=== PATIENT | male | born 1975 | race Two or more races ===

== ENCOUNTER → 2024-01-15 06:25 | Day surgery (SDC) | payer BC, SELFPAY | LOC: GI 06:25 | PROVIDERS: ATTENDING PHYSICIAN Internal Medicine Gastroenterology | DX: Z12.11 Encounter for screening for malignant neoplasm of colon (principal); K64.8 Other hemorrhoids | CPT/HCPCS: G0121 ==

== ENCOUNTER → 2024-08-26 14:00 | Outpatient (REF) | payer BC, SELFPAY | LOC: HWRAD 14:00 | PROVIDERS: ATTENDING PHYSICIAN Family Medicine | DX: R10.9 Unspecified abdominal pain (principal) | CPT/HCPCS: 74177; Q9967 ==

== ENCOUNTER 2024-09-07 06:44 | Outpatient (RCR) | payer BC, SELFPAY | END 2024-09-07 23:59 | disposition home or self-care (01) | LOC: RPT 06:44 | PROVIDERS: ATTENDING PHYSICIAN Family Medicine | DX: M54.50 Low back pain, unspecified (principal); Z73.6 Limitation of activities due to disability; R10.2 Pelvic and perineal pain | CPT/HCPCS: 97110; 97162 ==

== ENCOUNTER 2024-10-14 07:21 | Outpatient (RCR) | payer BC, SELFPAY | END 2024-10-14 23:59 | disposition home or self-care (01) | LOC: RPT 07:21 | PROVIDERS: ATTENDING PHYSICIAN Family Medicine | DX: M54.50 Low back pain, unspecified (principal); Z73.6 Limitation of activities due to disability; M25.551 Pain in right hip; R10.2 Pelvic and perineal pain | CPT/HCPCS: 97110 ==

== ENCOUNTER 2024-10-28 07:27 | Outpatient (RCR) | payer BC, SELFPAY | END 2024-10-28 23:59 | disposition home or self-care (01) | LOC: RPT 07:27 | PROVIDERS: ATTENDING PHYSICIAN Family Medicine | DX: M54.50 Low back pain, unspecified (principal); Z73.6 Limitation of activities due to disability; M25.551 Pain in right hip; R10.2 Pelvic and perineal pain; R29.3 Abnormal posture; M62.81 Muscle weakness (generalized) | CPT/HCPCS: 97110 ==

== ENCOUNTER 2025-01-31 08:37 | Emergency (ER) | payer BC, SELFPAY ==
[2025-01-31 08:48] VITALS: BP 136/81
--- NOTE | 2025-01-31 09:15 | ED.GENMED ---
History of Present Illness
General
Chief Complaint: Swelling
Source: patient
Time Seen by Provider: 01/31/25 08:54
History of Present Illness
History of Present Illness:
49-year-old male presents to the emergency room complaining of left lower leg pain and sensation of tightness. Patient recently traveled by car to [place] for about a 6-hour drive and then back the next day. Discomfort seemed to worsen after that
trip. No chest pain or shortness of breath. No other complaints. Patient is able to ambulate but does have some discomfort.
Phy Exam
Physical Exam
Physical Exam:
General: Awake, Alert, Oriented X3. No acute distress.
Vitals: unremarkable
Head: Atraumatic
Eyes: Pupils equal, EOMI
Throat: Airway intact, no exudates
Neck: Trachea midline
Neuro: Nonfocal
Skin: Warm, dry, no rash
Extremities: pulses equal b/l, perhaps mild swelling left lower extremity, some tenderness to palpation over the left calf.
Scores
Heart Failure Risk
Heart Failure Risk Score: Not Applicable
Course
Orders/Labs/Results
Orders:
Orders
01/31/25 09:13
US Periph Venous LOWER Ext LT Urgent
Comment:
Reason For Exam: pain, swelling, recent long drive
Vital Signs
Initial and Last Documented VS:
Initial Vital Signs
Temp Pulse Resp BP Pulse Ox
98.1 F 71 16 136/81 98
01/31/25 08:48 01/31/25 08:48 01/31/25 08:48 01/31/25 08:48 01/31/25 08:48
Last Documented Vital Signs
Temp Pulse Resp BP Pulse Ox
98.1 F 71 16 145/75 98
01/31/25 08:48 01/31/25 08:48 01/31/25 08:48 01/31/25 11:35 01/31/25 08:48
MDM/Problems Addressed
Differential Diagnosis Includes:
DVT, muscle strain, radiculopathy
MDM/Problems Addressed:
Ultrasound negative for DVT. Physical exam is reassuring. Patient has good pulses and sensation. Recommend outpatient follow-up
*Radiology
Radiology exam reviewed: radiology read reviewed
*Critical Care Note
Total Time (30-74mins, 75-104mins- exclusive of procedures): Not Applicable
ED Attending Note
-
Portions of this chart may have been created with voice recognition software.� Occasional wrong word or��sound alike� substitutions may have occurred due to the inherent limitations of voice recognition software.
Discharge Plan
Departure
Patient Disposition: Home (Routine Discharge)
Date of Disposition: 01/31/25
Time of Disposition: 11:10
Patient with high blood pressure during this ER visit?: No
Condition: Good
Discharge Problem:
Left leg pain
Referrals:
Mau Thorep, DO [Family Provider] -
Activity Restrictions/Additional Instructions:
Your ultrasound shows no evidence for a blood clot in your left leg. Suspect your pain is more muscular in nature. I think it safe for you to be discharged with no change in your medications and follow-up with Dr. Thorpe's office.
Interventions
Interventions:
*Risk Screen - Suicide Last Done: 01/31/25 08:53
*General Assessment Last Done: 01/31/25 08:53
*Neglect/Abuse Screening Last Done: 01/31/25 08:53
*Nursing Disposition Last Done: 01/31/25 11:58
ED-Skin Assessment Last Done: 01/31/25 09:29
Discharge Date and Time
Discharge Date/Time: 01/31/25 11:58
Print Language: MICRONESIAN
[2025-01-31 11:35] VITALS: BP 145/75
== END 2025-01-31 11:58 | disposition home or self-care (01) ==
LOC: EMR 08:37
PROVIDERS: EMERGENCY PHYSICIAN Emergency Medicine; FAMILY PHYSICIAN Family Medicine
DX: M79.662 Pain in left lower leg (principal); M79.89 Other specified soft tissue disorders; Z88.6 Allergy status to analgesic agent
CPT/HCPCS: 99284; 93971

== ENCOUNTER → 2025-02-05 13:57 | Outpatient (REF) | payer BC, SELFPAY | LOC: RAD 13:57 | PROVIDERS: ATTENDING PHYSICIAN Family Medicine | DX: I87.2 Venous insufficiency (chronic) (peripheral) (principal); M79.89 Other specified soft tissue disorders | CPT/HCPCS: 93970 ==

== ENCOUNTER → 2025-02-06 07:28 | Outpatient (REF) | payer BC, SELFPAY ==
[2025-02-06 08:20] LABS: % Basophils 1.3 % (0-2); % Eosinophils 9.5 % (0-6); % Immature Granulocytes 0.2 % (0-0.5); % Lymphocytes 40.6 % (20.5-51.1); % Monocytes 7.9 % (1.7-9.3); % Neutrophils 40.5 % (42.2-75.2); Absolute Basophils 0.1 10^3/uL (0-0.2); Absolute Eosinophils 0.5 10^3/uL (0-0.7); Absolute Lymphocytes 2.2 10^3/uL (1.2-3.4); Absolute Monocytes 0.4 10^3/uL (0.1-0.6); Absolute Neutrophils 2.2 10^3/uL (1.4-6.5); Hemoglobin 14.7 g/dL (13.0-18.0); Mean Corp Hgb Conc. 34.2 g/dL (33.0-37.0); Mean Corpuscular Hgb 29.6 pg (27.0-31.0); Mean Corpuscular Volume 86.5 fL (80.0-94.0); Nucleated Red Blood Cells % 0 % (-); Platelet Count 236 10^3/uL (130-400); Red Blood Cell Count 4.97 10^6/uL (4.70-6.10); Red Cell Dist. Width 12.3 % (11.5-14.5); White Blood Cell Count 5.4 10^3/uL (4.8-10.8)
[2025-02-06 09:00] LABS: ALT (SGPT) 35 U/L (0-50); AST (SGOT) 34 U/L (17-59); Albumin 4.4 g/dl (3.5-5.0); Alkaline Phosphatase 78 U/L (38-126); Blood Urea Nitrogen 10 mg/dl (9-20); Calcium 9.3 mg/dl (8.4-10.2); Carbon Dioxide 31 mmol/L (22-30); Chloride 104 mmol/L (98-107); Creatine Phosphokinase 173 U/L (55-170); Glucose 106 mg/dl (70-99); HDL Cholesterol 51 mg/dl; LDL Cholesterol, Calculated 81 mg/dl; Potassium 3.8 mmol/L (3.5-5.1); Sodium 142 mmol/L (135-145); Total Bilirubin 0.9 mg/dl (0.2-1.3); Total Cholesterol 160 mg/dl (50-199); Total Protein 7.5 g/dl (6.3-8.2); Triglyceride 144 mg/dl (10-149); Very Low Density Lipoprotein 28 mg/dl (0-30); eGFR > 60.00
== END ==
LOC: REG 07:28
PROVIDERS: ATTENDING PHYSICIAN Hospitalist; FAMILY PHYSICIAN Family Medicine
DX: E78.00 Pure hypercholesterolemia, unspecified (principal); R60.0 Localized edema
CPT/HCPCS: 36415; 80053; 80061; 82550; 85025

== ENCOUNTER → 2025-02-16 16:31 | Outpatient (REF) | payer BC, SELFPAY | LOC: RAD 16:31 | PROVIDERS: ATTENDING PHYSICIAN Family Medicine | DX: R60.0 Localized edema (principal) | CPT/HCPCS: 72193; Q9967 ==

== ENCOUNTER → 2025-02-23 07:24 | Outpatient (REF) | payer BC, SELFPAY | LOC: RCS 07:24 | PROVIDERS: ATTENDING PHYSICIAN Family Medicine | DX: R60.0 Localized edema (principal) | CPT/HCPCS: 93306 ==

== ENCOUNTER → 2025-03-15 07:52 | Outpatient (REF) | payer BC, SELFPAY | LOC: MRI 3T 07:52 | PROVIDERS: ATTENDING PHYSICIAN Family Medicine | DX: M54.42 Lumbago with sciatica, left side (principal) | CPT/HCPCS: 72148 ==